=== PATIENT | female | born 1935 | race Caucasian/White ===

== ENCOUNTER 2016-07-30 08:08 | Outpatient (CLI) | payer MEDICARE, OTHER | END 2016-07-30 08:10 | LOC: LAB 08:08 | PROVIDERS: ATTEND Internal Medicine Cardiovascular Disease | DX: I48.2 Chronic atrial fibrillation (principal) | CPT/HCPCS: 36415; 85610 ==

== ENCOUNTER 2016-08-27 09:32 | Outpatient (CLI) | payer MEDICARE, OTHER | END 2016-08-27 09:33 | LOC: LAB 09:32 | PROVIDERS: ATTEND Internal Medicine Cardiovascular Disease | DX: Z51.81 Encounter for therapeutic drug level monitoring (principal); Z79.01 Long term (current) use of anticoagulants; I48.2 Chronic atrial fibrillation | CPT/HCPCS: 36415; 85610 ==

== ENCOUNTER 2016-09-10 08:20 | Outpatient (CLI) | payer MEDICARE, OTHER ==
[2016-09-10 09:29] LABS: eGFR (African) > 60; eGFR (Non-African) > 60
== END 2016-09-10 08:21 ==
LOC: LAB 08:20
PROVIDERS: ATTEND Internal Medicine Cardiovascular Disease
DX: I48.2 Chronic atrial fibrillation (principal)
CPT/HCPCS: 36415; 80048; 85610

== ENCOUNTER 2016-09-17 08:13 | Outpatient (CLI) | payer MEDICARE, OTHER | END 2016-09-17 08:14 | LOC: LAB 08:13 | PROVIDERS: ATTEND Internal Medicine Cardiovascular Disease | DX: Z51.81 Encounter for therapeutic drug level monitoring (principal); Z79.01 Long term (current) use of anticoagulants; I48.2 Chronic atrial fibrillation | CPT/HCPCS: 36415; 85610 ==

== ENCOUNTER 2016-09-24 08:20 | Outpatient (CLI) | payer MEDICARE, OTHER | END 2016-09-24 08:30 | LOC: LAB 08:20 | PROVIDERS: ATTEND Internal Medicine Cardiovascular Disease | DX: I48.2 Chronic atrial fibrillation (principal) | CPT/HCPCS: 36415; 85610 ==

== ENCOUNTER 2016-10-08 08:10 | Outpatient (CLI) | payer MEDICARE, OTHER | END 2016-10-08 08:11 | LOC: LAB 08:10 | PROVIDERS: ATTEND Internal Medicine Cardiovascular Disease | DX: Z51.81 Encounter for therapeutic drug level monitoring (principal); Z79.01 Long term (current) use of anticoagulants; I48.2 Chronic atrial fibrillation | CPT/HCPCS: 36415; 85610 ==

== ENCOUNTER 2016-10-19 07:49 | Outpatient (CLI) | payer MEDICARE, OTHER | END 2016-10-19 07:50 | LOC: LAB 07:49 | PROVIDERS: ATTEND Internal Medicine Cardiovascular Disease | DX: Z51.81 Encounter for therapeutic drug level monitoring (principal); Z79.01 Long term (current) use of anticoagulants; I48.91 Unspecified atrial fibrillation | CPT/HCPCS: 36415; 85610 ==

== ENCOUNTER 2016-10-22 08:30 | Outpatient (CLI) | payer MEDICARE, OTHER | END 2016-10-22 08:32 | LOC: LAB 08:30 | PROVIDERS: ATTEND Internal Medicine Cardiovascular Disease | DX: Z51.81 Encounter for therapeutic drug level monitoring (principal); Z79.01 Long term (current) use of anticoagulants; I48.2 Chronic atrial fibrillation | CPT/HCPCS: 36415; 85610 ==

== ENCOUNTER 2016-10-25 12:24 | Outpatient (CLI) | payer MEDICARE, OTHER | END 2016-10-25 12:25 | LOC: LAB 12:24 | PROVIDERS: ATTEND Internal Medicine Cardiovascular Disease | DX: Z51.81 Encounter for therapeutic drug level monitoring (principal); Z79.01 Long term (current) use of anticoagulants; I48.2 Chronic atrial fibrillation | CPT/HCPCS: 36415; 85610 ==

== ENCOUNTER 2016-10-31 11:30 | Outpatient (CLI) | payer MEDICARE, OTHER | END 2016-10-31 11:32 | LOC: LAB 11:30 | PROVIDERS: ATTEND Internal Medicine Cardiovascular Disease | DX: Z51.81 Encounter for therapeutic drug level monitoring (principal); Z79.01 Long term (current) use of anticoagulants; I48.2 Chronic atrial fibrillation | CPT/HCPCS: 36415; 85610 ==

== ENCOUNTER 2016-11-06 07:48 | Outpatient (CLI) | payer MEDICARE, OTHER | END 2016-11-06 07:50 | LOC: LAB 07:48 | PROVIDERS: ATTEND Internal Medicine Cardiovascular Disease | DX: Z51.81 Encounter for therapeutic drug level monitoring (principal); Z79.01 Long term (current) use of anticoagulants; I48.2 Chronic atrial fibrillation | CPT/HCPCS: 36415; 85610 ==

== ENCOUNTER 2016-11-20 07:57 | Outpatient (CLI) | payer MEDICARE, OTHER | END 2016-11-20 08:00 | LOC: LAB 07:57 | PROVIDERS: ATTEND Internal Medicine Cardiovascular Disease | DX: Z51.81 Encounter for therapeutic drug level monitoring (principal); Z79.01 Long term (current) use of anticoagulants; I48.2 Chronic atrial fibrillation | CPT/HCPCS: 36415; 85610 ==

== ENCOUNTER 2016-12-03 08:14 | Outpatient (CLI) | payer MEDICARE, OTHER | END 2016-12-03 08:15 | LOC: LAB 08:14 | PROVIDERS: ATTEND Internal Medicine Cardiovascular Disease | DX: I48.2 Chronic atrial fibrillation (principal) | CPT/HCPCS: 36415; 85610 ==

== ENCOUNTER 2016-12-12 14:54 | Outpatient (CLI) | payer MEDICARE, OTHER ==
[2016-12-12 15:33] LABS: eGFR (African) > 60; eGFR (Non-African) > 60
== END 2016-12-12 14:55 ==
LOC: LAB 14:54
PROVIDERS: ATTEND Nurse Practitioner
DX: I36.1 Nonrheumatic tricuspid (valve) insufficiency (principal); I48.2 Chronic atrial fibrillation
CPT/HCPCS: 36415; 80053; 83880

== ENCOUNTER 2016-12-18 09:30 | Outpatient (CLI) | payer MEDICARE, OTHER ==
[2016-12-18 10:24] LABS: eGFR (African) > 60; eGFR (Non-African) > 60
== END 2016-12-18 09:32 ==
LOC: LAB 09:30
PROVIDERS: ATTEND Internal Medicine Cardiovascular Disease
DX: I48.2 Chronic atrial fibrillation (principal)
CPT/HCPCS: 36415; 80048; 85610

== ENCOUNTER 2016-12-31 08:09 | Outpatient (CLI) | payer MEDICARE, OTHER ==
[2016-12-31 08:55] LABS: eGFR (African) > 60; eGFR (Non-African) > 60
== END 2016-12-31 08:10 ==
LOC: LAB 08:09
PROVIDERS: ATTEND Internal Medicine Cardiovascular Disease
DX: I50.33 Acute on chronic diastolic (congestive) heart failure (principal)
CPT/HCPCS: 36415; 80048; 85610

== ENCOUNTER 2017-01-14 07:55 | Outpatient (CLI) | payer MEDICARE, OTHER | END 2017-01-14 07:56 | LOC: LAB 07:55 | PROVIDERS: ATTEND Internal Medicine Cardiovascular Disease | DX: I48.2 Chronic atrial fibrillation (principal) | CPT/HCPCS: 36415; 85610 ==

== ENCOUNTER 2017-01-28 07:53 | Outpatient (CLI) | payer MEDICARE, OTHER ==
[2017-01-28 08:41] LABS: eGFR (African) > 60; eGFR (Non-African) > 60
== END 2017-01-28 07:54 ==
LOC: LAB 07:53
PROVIDERS: ATTEND Internal Medicine Cardiovascular Disease
DX: I48.2 Chronic atrial fibrillation (principal)
CPT/HCPCS: 36415; 80048; 85610

== ENCOUNTER 2017-02-11 08:30 | Outpatient (CLI) | payer MEDICARE, OTHER | END 2017-02-11 09:00 | LOC: LAB 08:30 | PROVIDERS: ATTEND Internal Medicine Cardiovascular Disease | DX: I48.2 Chronic atrial fibrillation (principal) | CPT/HCPCS: 36415; 85610 ==

== ENCOUNTER 2017-02-25 07:31 | Outpatient (CLI) | payer MEDICARE, OTHER ==
[2017-02-25 08:28] LABS: eGFR (African) > 60; eGFR (Non-African) > 60
== END 2017-02-25 07:32 ==
LOC: LAB 07:31
PROVIDERS: ATTEND Internal Medicine Cardiovascular Disease
DX: I48.2 Chronic atrial fibrillation (principal)
CPT/HCPCS: 36415; 80048; 85610

== ENCOUNTER 2017-03-06 07:37 | Outpatient (CLI) | payer MEDICARE, OTHER | END 2017-03-06 07:47 | LOC: LAB 07:37 | PROVIDERS: ATTEND Internal Medicine Cardiovascular Disease | DX: I48.2 Chronic atrial fibrillation (principal) | CPT/HCPCS: 36415; 85610 ==

== ENCOUNTER 2017-03-12 08:43 | Outpatient (CLI) | payer MEDICARE, OTHER | END 2017-03-12 08:44 | LOC: LAB 08:43 | PROVIDERS: ATTEND Internal Medicine Cardiovascular Disease | DX: I48.2 Chronic atrial fibrillation (principal) | CPT/HCPCS: 36415; 85610 ==

== ENCOUNTER 2017-03-18 08:36 | Outpatient (CLI) | payer MEDICARE, OTHER | END 2017-03-18 08:37 | LOC: LAB 08:36 | PROVIDERS: ATTEND Internal Medicine Cardiovascular Disease | DX: I48.2 Chronic atrial fibrillation (principal) | CPT/HCPCS: 36415; 85610 ==

== ENCOUNTER 2017-03-26 09:54 | Outpatient (CLI) | payer MEDICARE, OTHER | END 2017-03-26 09:55 | LOC: LAB 09:54 | PROVIDERS: ATTEND Internal Medicine Cardiovascular Disease | DX: I48.2 Chronic atrial fibrillation (principal) | CPT/HCPCS: 36415; 85610 ==

== ENCOUNTER 2017-04-08 08:03 | Outpatient (CLI) | payer MEDICARE, OTHER | END 2017-04-08 08:04 | LOC: LAB 08:03 | PROVIDERS: ATTEND Internal Medicine Cardiovascular Disease | DX: I48.2 Chronic atrial fibrillation (principal) | CPT/HCPCS: 36415; 85610 ==

== ENCOUNTER 2017-05-06 07:49 | Outpatient (CLI) | payer MEDICARE, OTHER | END 2017-05-06 07:50 | LOC: LAB 07:49 | PROVIDERS: ATTEND Internal Medicine Cardiovascular Disease | DX: I48.2 Chronic atrial fibrillation (principal) | CPT/HCPCS: 36415; 85610 ==

== ENCOUNTER 2017-05-09 07:47 | Outpatient (CLI) | payer MEDICARE, OTHER ==
[2017-05-09 08:37] LABS: eGFR (African) > 60; eGFR (Non-African) > 60
== END 2017-05-09 07:50 ==
LOC: LAB 07:47
PROVIDERS: ATTEND Internal Medicine Cardiovascular Disease
DX: I50.32 Chronic diastolic (congestive) heart failure (principal)
CPT/HCPCS: 36415; 80048

== ENCOUNTER 2017-06-03 09:02 | Outpatient (CLI) | payer MEDICARE, OTHER | END 2017-06-03 09:30 | LOC: LAB 09:02 | PROVIDERS: ATTEND Internal Medicine Cardiovascular Disease | DX: I48.2 Chronic atrial fibrillation (principal) | CPT/HCPCS: 36415; 85610 ==

== ENCOUNTER 2017-06-17 07:42 | Outpatient (CLI) | payer MEDICARE, OTHER | END 2017-06-17 07:43 | LOC: LAB 07:42 | PROVIDERS: ATTEND Internal Medicine Cardiovascular Disease | DX: Z79.01 Long term (current) use of anticoagulants (principal) | CPT/HCPCS: 36415; 85610 ==

== ENCOUNTER 2017-07-01 08:24 | Outpatient (CLI) | payer MEDICARE, OTHER | END 2017-07-01 08:30 | LOC: LAB 08:24 | PROVIDERS: ATTEND Internal Medicine Cardiovascular Disease | DX: Z79.01 Long term (current) use of anticoagulants (principal) | CPT/HCPCS: 36415; 85610 ==

== ENCOUNTER 2017-07-16 08:51 | Outpatient (CLI) | payer MEDICARE, OTHER | END 2017-07-16 08:52 | LOC: LAB 08:51 | PROVIDERS: ATTEND Internal Medicine Cardiovascular Disease | DX: Z79.01 Long term (current) use of anticoagulants (principal) | CPT/HCPCS: 36415; 85610 ==

== ENCOUNTER 2017-08-07 10:08 | Outpatient (CLI) | payer MEDICARE, OTHER | END 2017-08-07 10:10 | LOC: LAB 10:08 | PROVIDERS: ATTEND Internal Medicine Cardiovascular Disease | DX: Z79.01 Long term (current) use of anticoagulants (principal) | CPT/HCPCS: 36415; 85610 ==

== ENCOUNTER 2017-08-26 09:57 | Outpatient (CLI) | payer MEDICARE, OTHER | END 2017-08-26 10:00 | LOC: LAB 09:57 | PROVIDERS: ATTEND Internal Medicine Cardiovascular Disease | DX: Z79.01 Long term (current) use of anticoagulants (principal) | CPT/HCPCS: 36415; 85610 ==

== ENCOUNTER 2017-09-16 09:13 | Outpatient (CLI) | payer MEDICARE, OTHER | END 2017-09-16 09:14 | LOC: LAB 09:13 | PROVIDERS: ATTEND Internal Medicine Cardiovascular Disease | DX: Z79.01 Long term (current) use of anticoagulants (principal) | CPT/HCPCS: 36415; 85610 ==

== ENCOUNTER 2017-09-17 09:05 | Outpatient (CLI) | payer MEDICARE, OTHER ==
[2017-09-17 09:24] LABS: MEAN CORPUSCULAR VOLUME 91.4 fl (80.0-100.0)
[2017-09-17 09:41] LABS: eGFR (African) > 60; eGFR (Non-African) > 60
== END 2017-09-17 09:06 ==
LOC: LAB 09:05
PROVIDERS: ATTEND Internal Medicine Cardiovascular Disease
DX: I50.32 Chronic diastolic (congestive) heart failure (principal)
CPT/HCPCS: 36415; 80048; 85027

== ENCOUNTER 2017-09-30 08:33 | Outpatient (CLI) | payer MEDICARE, OTHER | END 2017-09-30 09:00 | LOC: LAB 08:33 | PROVIDERS: ATTEND Family Medicine | DX: Z79.01 Long term (current) use of anticoagulants (principal) | CPT/HCPCS: 36415; 85610 ==

== ENCOUNTER 2017-10-14 08:02 | Outpatient (CLI) | payer MEDICARE, OTHER | END 2017-10-14 08:03 | LOC: LAB 08:02 | PROVIDERS: ATTEND Internal Medicine Cardiovascular Disease | DX: Z79.01 Long term (current) use of anticoagulants (principal) | CPT/HCPCS: 36415; 85610 ==

== ENCOUNTER 2017-10-21 12:31 | Outpatient (CLI) | payer MEDICARE, OTHER | END 2017-10-21 12:33 | LOC: LAB 12:31 | PROVIDERS: ATTEND Internal Medicine Cardiovascular Disease | DX: Z79.01 Long term (current) use of anticoagulants (principal) | CPT/HCPCS: 36415; 85610 ==

== ENCOUNTER 2017-10-28 08:31 | Outpatient (CLI) | payer MEDICARE, OTHER | END 2017-10-28 08:32 | LOC: LAB 08:31 | PROVIDERS: ATTEND Internal Medicine Cardiovascular Disease | DX: Z79.01 Long term (current) use of anticoagulants (principal) | CPT/HCPCS: 36415; 85610 ==

== ENCOUNTER 2017-11-11 08:18 | Outpatient (CLI) | payer MEDICARE, OTHER ==
[2017-11-11 08:35] LABS: MEAN CORPUSCULAR HEMOGLOBIN 30.8 pg (28.0-34.0); MEAN CORPUSCULAR VOLUME 90.3 fl (80.0-100.0)
[2017-11-11 08:54] LABS: eGFR (Non-African) > 60
== END 2017-11-11 08:20 ==
LOC: LAB 08:18
PROVIDERS: ATTEND Internal Medicine Cardiovascular Disease
DX: I36.1 Nonrheumatic tricuspid (valve) insufficiency (principal); I50.32 Chronic diastolic (congestive) heart failure; Z79.01 Long term (current) use of anticoagulants
CPT/HCPCS: 36415; 80053; 83880; 85027; 85610

== ENCOUNTER 2017-11-21 09:37 | Outpatient (CLI) | payer MEDICARE, OTHER | END 2017-11-21 09:40 | LOC: LAB 09:37 | PROVIDERS: ATTEND Internal Medicine Cardiovascular Disease | DX: Z79.01 Long term (current) use of anticoagulants (principal) | CPT/HCPCS: 36415; 85610 ==

== ENCOUNTER 2017-11-28 09:26 | Outpatient (CLI) | payer MEDICARE, OTHER | END 2017-11-28 09:27 | LOC: LAB 09:26 | PROVIDERS: ATTEND Internal Medicine Cardiovascular Disease | DX: Z79.01 Long term (current) use of anticoagulants (principal) | CPT/HCPCS: 36415; 85610 ==

== ENCOUNTER 2017-12-12 09:34 | Outpatient (CLI) | payer MEDICARE, OTHER | END 2017-12-12 12:20 | LOC: LAB 09:34 | PROVIDERS: ATTEND Internal Medicine Cardiovascular Disease | DX: Z79.01 Long term (current) use of anticoagulants (principal) | CPT/HCPCS: 36415; 85610 ==

== ENCOUNTER 2017-12-30 08:05 | Outpatient (CLI) | payer MEDICARE, OTHER | END 2017-12-30 08:06 | LOC: LAB 08:05 | PROVIDERS: ATTEND Internal Medicine Cardiovascular Disease | DX: Z79.01 Long term (current) use of anticoagulants (principal) | CPT/HCPCS: 36415; 85610 ==

== ENCOUNTER 2018-01-06 08:11 | Outpatient (CLI) | payer MEDICARE, OTHER | END 2018-01-06 08:12 | LOC: LAB 08:11 | PROVIDERS: ATTEND Internal Medicine Cardiovascular Disease | DX: I36.1 Nonrheumatic tricuspid (valve) insufficiency (principal); I50.32 Chronic diastolic (congestive) heart failure; Z79.01 Long term (current) use of anticoagulants | CPT/HCPCS: 36415; 85610 ==

== ENCOUNTER 2018-01-09 08:07 | Outpatient (CLI) | payer MEDICARE, OTHER | END 2018-01-10 08:15 | LOC: LAB 08:07 | PROVIDERS: ATTEND Internal Medicine Cardiovascular Disease | DX: Z79.01 Long term (current) use of anticoagulants (principal) | CPT/HCPCS: 36415; 85610 ==

== ENCOUNTER 2018-01-13 08:27 | Outpatient (CLI) | payer MEDICARE, OTHER | END 2018-01-13 08:30 | LOC: LAB 08:27 | PROVIDERS: ATTEND Internal Medicine Cardiovascular Disease | DX: Z79.01 Long term (current) use of anticoagulants (principal) | CPT/HCPCS: 36415; 85610 ==

== ENCOUNTER 2018-01-20 07:46 | Outpatient (CLI) | payer MEDICARE, OTHER | END 2018-01-20 07:47 | LOC: LAB 07:46 | PROVIDERS: ATTEND Internal Medicine Cardiovascular Disease | DX: Z79.01 Long term (current) use of anticoagulants (principal) | CPT/HCPCS: 36415; 85610 ==

== ENCOUNTER 2018-01-27 07:41 | Outpatient (CLI) | payer MEDICARE, OTHER | END 2018-01-27 07:43 | LOC: LAB 07:41 | PROVIDERS: ATTEND Internal Medicine Cardiovascular Disease | DX: Z79.01 Long term (current) use of anticoagulants (principal) | CPT/HCPCS: 36415; 85610 ==

== ENCOUNTER 2018-02-10 07:53 | Outpatient (CLI) | payer MEDICARE, OTHER | END 2018-02-10 07:54 | LOC: LAB 07:53 | PROVIDERS: ATTEND Internal Medicine Cardiovascular Disease | DX: Z79.01 Long term (current) use of anticoagulants (principal) | CPT/HCPCS: 36415; 85610 ==

== ENCOUNTER 2018-02-24 08:33 | Outpatient (CLI) | payer MEDICARE, OTHER | END 2018-02-24 08:34 | LOC: LAB 08:33 | PROVIDERS: ATTEND Internal Medicine Cardiovascular Disease | DX: Z79.01 Long term (current) use of anticoagulants (principal) | CPT/HCPCS: 36415; 85610 ==

== ENCOUNTER 2018-03-03 08:39 | Outpatient (CLI) | payer MEDICARE, OTHER | END 2018-03-03 08:40 | LOC: LAB 08:39 | PROVIDERS: ATTEND Internal Medicine Cardiovascular Disease | DX: Z79.01 Long term (current) use of anticoagulants (principal) | CPT/HCPCS: 36415; 85610 ==

== ENCOUNTER 2018-03-17 08:29 | Outpatient (CLI) | payer MEDICARE, OTHER | END 2018-03-17 08:30 | LOC: LAB 08:29 | PROVIDERS: ATTEND Internal Medicine Cardiovascular Disease | DX: Z79.01 Long term (current) use of anticoagulants (principal) | CPT/HCPCS: 36415; 85610 ==

== ENCOUNTER 2018-04-07 08:27 | Outpatient (CLI) | payer MEDICARE, OTHER | END 2018-04-07 09:30 | LOC: LAB 08:27 | PROVIDERS: ATTEND Internal Medicine Cardiovascular Disease | DX: Z79.01 Long term (current) use of anticoagulants (principal) | CPT/HCPCS: 36415; 85610 ==

== ENCOUNTER 2018-05-05 08:14 | Outpatient (CLI) | payer MEDICARE, OTHER ==
[2018-05-05 08:51] LABS: MEAN CORPUSCULAR HEMOGLOBIN 29.7 pg (28.0-34.0)
[2018-05-05 08:52] LABS: eGFR (Non-African) > 60
== END 2018-05-05 08:16 ==
LOC: LAB 08:14
PROVIDERS: ATTEND Internal Medicine Cardiovascular Disease
DX: I48.2 Chronic atrial fibrillation (principal); I50.32 Chronic diastolic (congestive) heart failure; Z79.01 Long term (current) use of anticoagulants
CPT/HCPCS: 36415; 80053; 85027; 85610

== ENCOUNTER 2018-05-16 08:13 | Outpatient (CLI) | payer MEDICARE, OTHER | END 2018-05-16 08:30 | LOC: LAB 08:13 | PROVIDERS: ATTEND Internal Medicine Cardiovascular Disease | DX: Z79.01 Long term (current) use of anticoagulants (principal) | CPT/HCPCS: 36415; 85610 ==

== ENCOUNTER 2018-05-21 08:24 | Outpatient (CLI) | payer MEDICARE, OTHER | END 2018-05-21 08:25 | LOC: LAB 08:24 | PROVIDERS: ATTEND Internal Medicine Cardiovascular Disease | DX: Z79.01 Long term (current) use of anticoagulants (principal) | CPT/HCPCS: 36415; 85610 ==

== ENCOUNTER 2018-05-26 08:34 | Outpatient (CLI) | payer MEDICARE, OTHER | END 2018-05-26 08:36 | LOC: LAB 08:34 | PROVIDERS: ATTEND Internal Medicine Cardiovascular Disease | DX: Z79.01 Long term (current) use of anticoagulants (principal) | CPT/HCPCS: 36415; 85610 ==

== ENCOUNTER 2018-06-09 08:04 | Outpatient (CLI) | payer MEDICARE, OTHER | END 2018-06-09 08:06 | LOC: LAB 08:04 | PROVIDERS: ATTEND Internal Medicine Cardiovascular Disease | DX: Z79.01 Long term (current) use of anticoagulants (principal) | CPT/HCPCS: 36415; 85610 ==

== ENCOUNTER 2018-06-17 10:08 | Outpatient (CLI) | payer MEDICARE, OTHER | END 2018-06-17 10:10 | LOC: LAB 10:08 | PROVIDERS: ATTEND Internal Medicine Cardiovascular Disease | DX: Z79.01 Long term (current) use of anticoagulants (principal) | CPT/HCPCS: 36415; 85610 ==

== ENCOUNTER 2018-06-23 08:05 | Outpatient (CLI) | payer MEDICARE, OTHER | END 2018-06-23 08:06 | LOC: LAB 08:05 | PROVIDERS: ATTEND Internal Medicine Cardiovascular Disease | DX: Z79.01 Long term (current) use of anticoagulants (principal) | CPT/HCPCS: 36415; 85610 ==

== ENCOUNTER 2018-07-07 08:10 | Outpatient (CLI) | payer MEDICARE, OTHER | END 2018-07-07 08:15 | disposition home or self-care (01) | LOC: LAB 08:10 | PROVIDERS: ATTEND Internal Medicine Cardiovascular Disease | DX: Z79.01 Long term (current) use of anticoagulants (principal) | CPT/HCPCS: 36415; 85610 ==

== ENCOUNTER 2018-07-16 08:42 | Outpatient (CLI) | payer MEDICARE, OTHER | END 2018-07-16 08:43 | LOC: LAB 08:42 | PROVIDERS: ATTEND Internal Medicine Cardiovascular Disease | DX: Z79.01 Long term (current) use of anticoagulants (principal) | CPT/HCPCS: 36415; 85610 ==

== ENCOUNTER 2018-07-23 08:40 | Outpatient (CLI) | payer MEDICARE, OTHER | END 2018-07-23 08:42 | LOC: LAB 08:40 | PROVIDERS: ATTEND Internal Medicine Cardiovascular Disease | DX: Z79.01 Long term (current) use of anticoagulants (principal); Z51.81 Encounter for therapeutic drug level monitoring | CPT/HCPCS: 36415; 85610 ==

== ENCOUNTER 2018-07-30 08:00 | Outpatient (CLI) | payer MEDICARE, OTHER | END 2018-07-30 08:03 | LOC: LAB 08:00 | PROVIDERS: ATTEND Internal Medicine Cardiovascular Disease | DX: Z79.01 Long term (current) use of anticoagulants (principal) | CPT/HCPCS: 36415; 85610 ==

== ENCOUNTER 2018-08-12 08:45 | Outpatient (CLI) | payer MEDICARE, OTHER | END 2018-08-12 08:47 | LOC: LAB 08:45 | PROVIDERS: ATTEND Internal Medicine Cardiovascular Disease | DX: Z79.01 Long term (current) use of anticoagulants (principal); Z51.81 Encounter for therapeutic drug level monitoring | CPT/HCPCS: 36415; 85610 ==

== ENCOUNTER 2018-08-29 13:43 | Outpatient (CLI) | payer MEDICARE, OTHER ==
[2018-08-29 14:24] LABS: eGFR (Non-African) > 60
== END 2018-08-29 13:44 ==
LOC: LAB 13:43
PROVIDERS: ATTEND Internal Medicine Cardiovascular Disease
DX: I10 Essential (primary) hypertension (principal); I48.2 Chronic atrial fibrillation; Z79.01 Long term (current) use of anticoagulants
CPT/HCPCS: 36415; 80048; 85610

== ENCOUNTER 2018-09-03 12:19 | Outpatient (CLI) | payer MEDICARE | END 2018-09-03 12:21 | LOC: LAB 12:19 | PROVIDERS: ATTEND Internal Medicine Cardiovascular Disease | DX: Z79.01 Long term (current) use of anticoagulants (principal) | CPT/HCPCS: 36415; 85610 ==

== ENCOUNTER 2018-09-11 11:27 | Outpatient (CLI) | payer MEDICARE | END 2018-09-11 11:30 | LOC: LAB 11:27 | PROVIDERS: ATTEND Internal Medicine Cardiovascular Disease | DX: Z79.01 Long term (current) use of anticoagulants (principal) | CPT/HCPCS: 36415; 85610 ==

== ENCOUNTER 2018-09-22 12:18 | Outpatient (CLI) | payer MEDICARE ==
[2018-09-23 12:13] LABS: eGFR (Non-African) > 60
== END 2018-09-22 12:20 ==
LOC: LAB 12:18
PROVIDERS: ATTEND Internal Medicine Cardiovascular Disease
DX: Z79.01 Long term (current) use of anticoagulants (principal); I48.2 Chronic atrial fibrillation; I50.32 Chronic diastolic (congestive) heart failure
CPT/HCPCS: 36415; 80048; 85610

== ENCOUNTER 2018-10-06 09:55 | Outpatient (CLI) | payer MEDICARE | END 2018-10-06 09:58 | LOC: LAB 09:55 | PROVIDERS: ATTEND Internal Medicine Cardiovascular Disease | DX: Z79.01 Long term (current) use of anticoagulants (principal) | CPT/HCPCS: 36415; 85610 ==

== ENCOUNTER 2018-10-09 08:22 | Outpatient (CLI) | payer MEDICARE ==
[2018-10-09 09:03] LABS: eGFR (Non-African) > 60
== END 2018-10-09 08:23 ==
LOC: LAB 08:22
PROVIDERS: ATTEND Internal Medicine Cardiovascular Disease
DX: Z79.01 Long term (current) use of anticoagulants (principal)
CPT/HCPCS: 36415; 80048; 85610

== ENCOUNTER 2018-10-15 07:54 | Outpatient (CLI) | payer MEDICARE | END 2018-10-15 07:56 | LOC: LAB 07:54 | PROVIDERS: ATTEND Internal Medicine Cardiovascular Disease | DX: Z79.01 Long term (current) use of anticoagulants (principal) | CPT/HCPCS: 36415; 85610 ==

== ENCOUNTER 2018-10-22 08:38 | Outpatient (CLI) | payer MEDICARE, OTHER | END 2018-10-22 08:40 | LOC: LAB 08:38 | PROVIDERS: ATTEND Internal Medicine Cardiovascular Disease | DX: Z79.01 Long term (current) use of anticoagulants (principal) | CPT/HCPCS: 36415; 85610 ==

== ENCOUNTER 2018-11-05 08:24 | Outpatient (CLI) | payer MEDICARE, OTHER | END 2018-11-05 08:25 | LOC: LAB 08:24 | PROVIDERS: ATTEND Internal Medicine Cardiovascular Disease | DX: Z79.01 Long term (current) use of anticoagulants (principal) | CPT/HCPCS: 36415; 85610 ==

== ENCOUNTER 2018-11-12 08:28 | Outpatient (CLI) | payer MEDICARE, OTHER | END 2018-11-12 08:30 | LOC: LAB 08:28 | PROVIDERS: ATTEND Internal Medicine Cardiovascular Disease | DX: Z79.01 Long term (current) use of anticoagulants (principal) | CPT/HCPCS: 36415; 85610 ==

== ENCOUNTER 2018-12-08 08:13 | Outpatient (CLI) | payer MEDICARE, OTHER ==
[2018-12-08 08:32] LABS: BASOPHILS % 0.4 % (0.0-1.5); EOSINOPHILS % 3.1 % (0.0-6.8); MEAN CORPUSCULAR HEMOGLOBIN 29.3 pg (28.0-34.0); MONOCYTES % 6.9 % (0.0-11.0); NEUTROPHILS # 4.7 # k/uL (1.4-7.7)
== END 2018-12-08 08:14 ==
LOC: LAB 08:13
PROVIDERS: ATTEND Internal Medicine Cardiovascular Disease
DX: I48.2 Chronic atrial fibrillation (principal); I50.32 Chronic diastolic (congestive) heart failure; I36.1 Nonrheumatic tricuspid (valve) insufficiency; Z79.01 Long term (current) use of anticoagulants
CPT/HCPCS: 36415; 80053; 85025; 85610; 85651; 86431

== ENCOUNTER 2018-12-16 07:35 | Outpatient (CLI) | payer MEDICARE, OTHER | END 2018-12-16 07:36 | LOC: LAB 07:35 | PROVIDERS: ATTEND Internal Medicine Cardiovascular Disease | DX: Z79.01 Long term (current) use of anticoagulants (principal); Z51.81 Encounter for therapeutic drug level monitoring | CPT/HCPCS: 36415; 85610 ==

== ENCOUNTER 2018-12-30 10:52 | Outpatient (CLI) | payer MEDICARE, OTHER | END 2018-12-30 10:57 | disposition home or self-care (01) | LOC: LAB 10:52 | PROVIDERS: ATTEND Internal Medicine Cardiovascular Disease | DX: Z51.81 Encounter for therapeutic drug level monitoring (principal); Z79.01 Long term (current) use of anticoagulants | CPT/HCPCS: 36415; 85610 ==

== ENCOUNTER 2019-01-05 08:04 | Outpatient (CLI) | payer MEDICARE, OTHER | END 2019-01-05 08:09 | disposition home or self-care (01) | LOC: LAB 08:04 | PROVIDERS: ATTEND Internal Medicine Cardiovascular Disease | DX: Z51.81 Encounter for therapeutic drug level monitoring (principal); Z79.01 Long term (current) use of anticoagulants | CPT/HCPCS: 36415; 85610 ==

== ENCOUNTER 2019-01-19 15:29 | Outpatient (CLI) | payer MEDICARE, OTHER | END 2019-01-19 15:32 | LOC: LAB 15:29 | PROVIDERS: ATTEND Internal Medicine Cardiovascular Disease | DX: Z79.01 Long term (current) use of anticoagulants (principal); Z51.81 Encounter for therapeutic drug level monitoring | CPT/HCPCS: 36415; 85610 ==

== ENCOUNTER 2019-01-26 09:03 | Outpatient (CLI) | payer MEDICARE, OTHER | END 2019-01-26 09:05 | LOC: LAB 09:03 | PROVIDERS: ATTEND Internal Medicine Cardiovascular Disease | DX: Z51.81 Encounter for therapeutic drug level monitoring (principal); Z79.01 Long term (current) use of anticoagulants | CPT/HCPCS: 36415; 85610 ==

== ENCOUNTER 2019-01-30 08:34 | Outpatient (CLI) | payer MEDICARE, OTHER | END 2019-01-30 08:36 | LOC: LAB 08:34 | PROVIDERS: ATTEND Internal Medicine Cardiovascular Disease | DX: Z79.01 Long term (current) use of anticoagulants (principal); Z51.81 Encounter for therapeutic drug level monitoring | CPT/HCPCS: 36415; 85610 ==

== ENCOUNTER 2019-02-04 09:15 | Outpatient (CLI) | payer MEDICARE, OTHER | END 2019-02-04 09:17 | LOC: LAB 09:15 | PROVIDERS: ATTEND Internal Medicine Cardiovascular Disease | DX: Z79.01 Long term (current) use of anticoagulants (principal); Z51.81 Encounter for therapeutic drug level monitoring | CPT/HCPCS: 36415; 85610 ==

== ENCOUNTER 2019-02-11 08:53 | Outpatient (CLI) | payer MEDICARE, OTHER | END 2019-02-11 08:54 | LOC: LAB 08:53 | PROVIDERS: ATTEND Internal Medicine Cardiovascular Disease | DX: Z51.81 Encounter for therapeutic drug level monitoring (principal); Z79.01 Long term (current) use of anticoagulants | CPT/HCPCS: 36415; 85610 ==

== ENCOUNTER 2019-03-09 09:02 | Outpatient (CLI) | payer MEDICARE, OTHER | END 2019-03-09 09:04 | LOC: LAB 09:02 | PROVIDERS: ATTEND Internal Medicine Cardiovascular Disease | DX: Z51.81 Encounter for therapeutic drug level monitoring (principal); Z79.01 Long term (current) use of anticoagulants | CPT/HCPCS: 36415; 85610 ==

== ENCOUNTER 2019-03-16 09:47 | Outpatient (CLI) | payer MEDICARE, OTHER ==
[2019-03-16 10:13] LABS: eGFR (Non-African) > 60
== END 2019-03-16 09:50 ==
LOC: LAB 09:47
PROVIDERS: ATTEND Internal Medicine Cardiovascular Disease
DX: Z51.81 Encounter for therapeutic drug level monitoring (principal); Z79.01 Long term (current) use of anticoagulants
CPT/HCPCS: 36415; 80048; 85610

== ENCOUNTER 2019-03-24 08:24 | Outpatient (CLI) | payer MEDICARE, OTHER | END 2019-03-24 08:26 | LOC: LAB 08:24 | PROVIDERS: ATTEND Internal Medicine Cardiovascular Disease | DX: Z79.01 Long term (current) use of anticoagulants (principal); Z51.81 Encounter for therapeutic drug level monitoring | CPT/HCPCS: 36415; 85610 ==

== ENCOUNTER 2019-03-30 08:52 | Outpatient (CLI) | payer MEDICARE, OTHER | END 2019-03-30 08:54 | LOC: LAB 08:52 | PROVIDERS: ATTEND Internal Medicine Cardiovascular Disease | DX: Z51.81 Encounter for therapeutic drug level monitoring (principal); Z79.01 Long term (current) use of anticoagulants | CPT/HCPCS: 36415; 85610 ==

== ENCOUNTER 2019-05-11 12:55 | Outpatient (CLI) | payer MEDICARE, OTHER ==
[2019-05-11 13:07] LABS: eGFR (Non-African) > 60
== END 2019-05-11 13:00 ==
LOC: LAB 12:55
PROVIDERS: ATTEND Family Medicine
DX: J44.1 Chronic obstructive pulmonary disease with (acute) exacerbation (principal); K42.9 Umbilical hernia without obstruction or gangrene; D42.9 Neoplasm of uncertain behavior of meninges, unspecified
CPT/HCPCS: 36415; 80048; 85027; 85610; P9603

== ENCOUNTER 2019-05-18 09:58 | Outpatient (CLI) | payer MEDICARE, OTHER ==
[2019-05-18 11:10] LABS: BASOPHILS % 0.3 % (0.0-1.5); NEUTROPHILS # 4.8 # k/uL (1.4-7.7)
[2019-05-18 11:11] LABS: eGFR (Non-African) > 60
== END 2019-05-18 10:03 ==
LOC: LAB 09:58
PROVIDERS: ATTEND Family Medicine
DX: I10 Essential (primary) hypertension (principal); I48.91 Unspecified atrial fibrillation
CPT/HCPCS: 36415; 80048; 85025; 85610; 85730; P9603

== ENCOUNTER 2019-05-26 13:00 | Outpatient (CLI) | payer MEDICARE, OTHER | END 2019-05-26 13:05 | LOC: LAB 13:00 | PROVIDERS: ATTEND Family Medicine | DX: I48.91 Unspecified atrial fibrillation (principal); D64.9 Anemia, unspecified; I63.9 Cerebral infarction, unspecified | CPT/HCPCS: 36415; 85610; P9603 ==